=== PATIENT | female | born 1975 | race Caucasian/White ===

== ENCOUNTER → 2017-07-31 | Outpatient (CLI) | payer BC ==
--- NOTE | 2017-08-01 07:10 | MM ---
Reason for exam: screening (asymptomatic). Last mammogram was performed 2 years and 6 months ago. History: Patient had first child at age 32. Benign US right guided VAD of the right breast, December 24, 2009. Took hormonal contraceptives for 15 years. Physical Findings: A clinical breast exam by your physician is recommended on an annual basis and results should be correlated with mammographic findings. MG Screening Mammo w CAD Bilateral CC and MLO view(s) were taken. Prior study comparison: January 19, 2015, bilateral MG screening mammo w CAD. December 18, 2009, right breast mammogram dig work up. The breast tissue is heterogeneously dense. This may lower the sensitivity of mammography. Previous mammotome biopsy in the right breast. Asymmetric breast tissue left inferior position, stable. There is no discrete abnormality. ASSESSMENT: Benign, BI-RAD 2 RECOMMENDATION: Routine screening mammogram of both breasts in 1 year.
--- NOTE | 2017-08-01 11:45 | EST ---
EXERCISE STRESS AGE: 41 SEX: F HT: 4'11" WT: 160 PROTOCOL: Won Exercise Stress Test STAGE: 4 DURATION OF EXERCISE: 11:02 HEART RATE REST: 64 BLOOD PRESSURE REST: 116/77 MAXIMUM HEART RATE ACHIEVED: 174 MAXIMUM BLOOD PRESSURE: 154/74 85% MPHR: 150 100% MPHR: 177 METS: 12.1 INDICATIONS: Shortness of breath. CLINICAL INFORMATION: STRESS DATA: Pretesting physical examination showed a heart rate of 64, pressure is 116/77 mmHg. Baseline EKG showed sinus mechanism. The patient exercised on the treadmill according to Won protocol for a total of 11 minute and achieved 12.1 METS. Max heart rate was 174, which is about 87% of maximum predicted heart rate. Maximum blood pressure was 154/74 mmHg. Clinically, the patient did not have any symptoms of chest pain, which but she developed some shortness of breath. The EKG did not show any significant ST or T-wave abnormalities consistent with ischemia. CONCLUSION: 1. Good exercise capacity. 2. Normal EKG in response to exercise. MMODL / IJN: [id number] /
== END | disposition home or self-care (01) ==
LOC: RADMAMWWP 10:08
PROVIDERS: ATTEND Family Medicine
DX: Z12.31 Encounter for screening mammogram for malignant neoplasm of breast (principal); R07.89 Other chest pain
CPT/HCPCS: 77067; 93017

== ENCOUNTER → 2019-05-09 | Outpatient (CLI) | payer BC ==
--- NOTE | 2019-05-10 12:00 | MM ---
Reason for exam: screening (asymptomatic). Last mammogram was performed 1 year and 9 months ago. History: Patient had first child at age 32. Benign US right guided VAD of the right breast, December 24, 2009. Took hormonal contraceptives for 15 years. Physical Findings: A clinical breast exam by your physician is recommended on an annual basis and results should be correlated with mammographic findings. MG Screening Mammo w CAD Bilateral CC and MLO view(s) were taken. Prior study comparison: July 31, 2017, bilateral MG screening mammo w CAD. January 19, 2015, bilateral MG screening mammo w CAD. There are scattered fibroglandular densities. Finding: There is a 10 mm equal density (isodense) mass in the right breast. Previous mammotome biopsy in the right breast. ASSESSMENT: Incomplete: need additional imaging evaluation, BI-RAD 0 RECOMMENDATION: Special view mammogram of the right breast. If lesion persists on supplemental views, image directed ultrasound is recommended. [facility] will attempt to contact patient to return for supplemental views and ultrasound if indicated.
== END | disposition home or self-care (01) ==
LOC: RADMAMWWP 09:06
PROVIDERS: ATTEND Family Medicine
DX: Z12.31 Encounter for screening mammogram for malignant neoplasm of breast (principal)
CPT/HCPCS: 77067

== ENCOUNTER → 2020-04-07 | Outpatient (CLI) | payer BC ==
[2020-04-07 13:53] LABS: Basophils # (A) 0.1 k/uL (0-0.2); Basophils % (A) 1 %; Eosinophils # (A) 0.3 k/uL (0-0.7); Eosinophils % (A) 4 %; HCT 41.5 % (34.0-46.0); Lymphocytes # (A) 2.4 k/uL (1.0-4.8); Lymphocytes % (A) 31 %; MCH 31.7 pg (25.0-35.0); MCHC 33.7 g/dL (31.0-37.0); Mean Platelet Volume 6.8; Monocytes # (A) 0.3 k/uL (0-1.0); Monocytes % (A) 4 %; Neutrophils # (A) 4.7 k/uL (1.3-7.7); Neutrophils % (A) 60 %; Platelet Count 333 k/uL (150-450); RBC 4.41 m/uL (3.80-5.40); RDW 12.2 % (11.5-15.5); WBC 7.8 k/uL (3.8-10.6)
[2020-04-07 14:24] LABS: C Reactive Protein 5.5 mg/L (<10.0)
[2020-04-07 14:41] LABS: Erythrocyte Sedimentation Rate 7 mm/hr (0-20)
--- NOTE | 2020-04-07 15:20 | US ---
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 EXAM MEASUREMENTS: RIGHT: Peak Systolic Velocity (PSV) cm/sec ----- Right CCA: 79.1 ----- Right ICA: 85.3 ----- Right ECA: 93.2 ICA/CCA ratio: 1.1 RIGHT: End Diastole cm/sec ----- Right CCA: 24.5 ----- Right ICA: 41.3 ----- Right ECA: 22.1 LEFT: Peak Systolic Velocity (PSV) cm/sec ----- Left CCA: 80.3 ----- Left ICA: 88.4 ----- Left ECA: 80.3 ICA/CCA ratio: 1.1 LEFT: End Diastole cm/sec ----- Left CCA: 22.8 ----- Left ICA: 37.9 ----- Left ECA: 14.7 VERTEBRALS (direction of flow): Right Vertebral: Antegrade Left Vertebral: Antegrade Rhythm: Normal Bilateral intimal thickening, no elevated velocities, no significant stenosis. IMPRESSION: 1. No significant flow-limiting stenosis Criteria for Assigning % of Stenosis / Diameter reduction (Estimation based on the indirect measurements of the internal carotid artery velocities (ICA PSV). 1. Normal (no stenosis)=ICA PSV < 125 cm/s: ratio < 2.0: ICA EDV<40 cm/s. 2. Less than 50% stenosis=ICA PSV < 125 cm/s: ratio < 2.0: ICA EDV<40 cm/s. 3. 50 to 69% stenosis=ICA PSV of 125 to 230 cm/s: ration 2.0 ? 4.0: ICA EDV 40-100 cm/s. 4. Greater than 70% stenosis to near occlusion= ICA PSV > 230 cm/s: ratio > 4.0: ICA EDV > 100 cm/s. 5. Near occlusion= ICA PSV velocities may be low or undetectable: variable ratio and ICA EDV. 6. Total occlusion=unable to detect flow.
--- NOTE | 2020-04-07 18:00 | ECHOF ---
Referral Reason:H34.231 MEASUREMENTS -------- HEIGHT: 149.9 cm WEIGHT: 75.3 kg BP: 120/80 RVIDd: 2.8 cm (< 3.3) IVSd: 1.1 cm (0.6 - 1.1) LVIDd: 4.0 cm (3.9 - 5.3) LVPWd: 1.1 cm (0.6 - 1.1) IVSs: 1.4 cm LVIDs: 3.0 cm LVPWs: 1.3 cm LA Diam: 3.3 cm (2.7 - 3.8) LAESV Index (A-L): 16.39 ml/m Ao Diam: 2.5 cm (2.0 - 3.7) AV Cusp: 1.6 cm (1.5 - 2.6) MV EXCURSION: 12.690 mm (> 18.000) MV EF SLOPE: 149 mm/s (70 - 150) EPSS: 0.2 cm MV E Mayank: 0.96 m/s MV DecT: 192 ms MV A Mayank: 0.64 m/s MV E/A Ratio: 1.49 RAP: 5.00 mmHg RVSP: 20.86 mmHg FINDINGS -------- Sinus rhythm. This was a technically good study. The left ventricular size is normal. There is borderline concentric left ventricular hypertrophy. Overall left ventricular systolic function is normal with, an EF between 60 - 65 %. The right ventricle is normal in size. Normal LA size by volume 22+/-6 ml/m2. The right atrium is normal in size. Interatrial and interventricular septum intact. The aortic valve is trileaflet and appears structurally normal. The mitral valve is normal. Mild tricuspid regurgitation present. Right ventricular systolic pressure is normal at < 35 mmHg. Trace/mild (physiologic) pulmonic regurgitation. The aortic root size is normal. Normal inferior vena cava with normal inspiratory collapse consistent with estimated right atrial pre ssure of 5 mmHg. There is no pericardial effusion. CONCLUSIONS -------- 1. The left ventricular size is normal. 2. There is borderline concentric left ventricular hypertrophy. 3. Overall left ventricular systolic function is normal with, an EF between 60 - 65 %. 4. Mild tricuspid regurgitation present. 5. Trace/mild (physiologic) pulmonic regurgitation. 6. There is no pericardial effusion. DIRECTOR [employer] ONCOLOGY: Delores Rutherford RDCS
[2020-04-07 22:07] LABS: Protein, Total 6.3 g/dL (6.2-8.2)
[2020-04-08 03:17] LABS: Rheumatoid Factor, Qnt <4 IU/mL (0-15)
[2020-04-08 09:52] LABS: Angiotensin-1 Converting Enz. 43 U/L (8-52)
[2020-04-08 13:53] LABS: Albumin 3.91 g/dL (3.80-4.90); Gamma Globulin 0.86 g/dL (0.70-1.50)
== END | disposition home or self-care (01) ==
LOC: RADUSWWP 12:38
PROVIDERS: ATTEND Ophthalmology
DX: I07.1 Rheumatic tricuspid insufficiency (principal); I37.1 Nonrheumatic pulmonary valve insufficiency
CPT/HCPCS: 82164; 84165; 85025; 85300; 85549; 85652; 86038; 86140; 86431; 86592; 86780; 93306; 93880

== ENCOUNTER → 2021-11-12 | Outpatient (CLI) | payer BC ==
--- NOTE | 2021-11-15 08:41 | MM ---
Reason for Exam: Screening (asymptomatic). Last mammogram was performed 2 year(s) and 6 month(s) ago. Patient History: Menarche at age 10. First Full-Term at age 32. Late child-bearing (after 30). Premenopausal. Hormonal Contraceptives for 18 years from age 13 until age 31. 12/24/2009, Benign Core Biopsy on the right side. Risk Values: Kelly 5 year model risk: 1.7%. NCI Lifetime model risk: 14.7%. Prior Study Comparison: 01/19/2015 Bilateral Screening Mammogram, [facility]. 07/31/2017 Bilateral Screening Mammogram, [facility]. 05/09/2019 Bilateral Screening Mammogram, [facility]. 05/20/2019 Right Diagnostic Mammogram, [facility]. Tissue Density: There are scattered fibroglandular densities. Findings: Analyzed By CAD. Microclip follow up right breast from prior biopsy. No significant change from prior exams. Overall Assessment: Negative, BI-RAD 1 Management: Screening Mammogram of both breasts in 1 year. 1. Patient should continue monthly self breast exams. 2. A clinical breast exam by your physician is recommended on an annual basis. 3. This exam should not preclude additional follow-up of suspicious palpable abnormalities. Electronically signed and approved by: Brian Hernandez M.D. Radiologist
== END | disposition home or self-care (01) ==
LOC: RADMAMWWP 07:16
PROVIDERS: ATTEND Family Medicine
DX: Z12.31 Encounter for screening mammogram for malignant neoplasm of breast (principal)
CPT/HCPCS: 77067